=== PATIENT | female | born 1960 | race Caucasian/White ===

== ENCOUNTER 2020-03-18 13:38 | Outpatient (REF) | payer SELFPAY | END 2020-03-18 13:39 | disposition home or self-care (01) | LOC: HO.HAP 13:38 | PROVIDERS: Visit Provider Nurse Practitioner Family | DX: Z46.1 Encounter for fitting and adjustment of hearing aid (principal) | CPT/HCPCS: 92700 ==

== ENCOUNTER 2020-04-01 07:56 | Outpatient (REF) | payer SELFPAY | END 2020-04-01 07:57 | disposition home or self-care (01) | LOC: HO.HAP 07:56 | PROVIDERS: Visit Provider Internal Medicine | DX: Z13.89 Encounter for screening for other disorder (principal) | CPT/HCPCS: 92700 ==

== ENCOUNTER 2020-10-14 09:25 | Outpatient (REF) | payer OTHER, SELFPAY ==
--- NOTE | 2020-10-14 18:20 | MHC.AU.AHA ---
Adult Audiological Evaluation Date of Visit: 10/14/20 Reason for Appointment: Audiological evaluation to monitor the status of Ms. Gregory's hearing loss. She has a longstanding history of bilateral hearing loss and hearing aid use. She denies any significant changes to her hearing or medical history. [place] [facility] [place] Mild sloping to moderately severe/severe sensorineural hearing loss bilaterally. Medical History: Medical History: Unremarkable Medical History Hearing Instrument History- Right Ear: Spiral Tube Winder: Oticon Model: OPN 1 miniRITE-T Serial Number: [id number] Battery Size: 312 Repair Warranty: 08/03/20 Loss and Damage Warranty: 08/03/19 Dispensed By: [facility] Date of Fittin07/04/2017 Hearing Instrument History- Left Ear: Spiral Tube Winder: Oticon Model: OPN 1 miniRITE-T Serial Number: [id number] Battery Size: 312 Warranty: 08/03/20 Loss and Damage Warranty: 08/03/19 Dispensed By: [facility] Date of Fittin07/04/2017 Otoscopy: Right Ear: Unremarkable Left Ear: Unremarkable Tympanometry: Tympanometry performed due to: To assess integrity of the middle ear system Right Ear: Normal Middle Ear System (Type A) Left Ear: Normal Middle Ear System (Type A) Hearing Evaluation: Transducer(s) Used: Insert Earphones, Bone Conduction Method: Conventional Audiometry Stimuli Used: Pure Tones Right Ear: Description of Hearing: Mild sloping to severe sensorineural hearing loss from 250-8000 Hz. Left Ear: Description of Hearing: Mild sloping to severe sensorineural hearing loss from 250-8000 Hz. Speech Recognition Threshold (SRT): Method Used: Monitored Live Voice Stimuli Used: Spondee Words Right Ear: 25 dBHL Left Ear: 30 dBHL Word Discrimination: Method: Recorded Lists Word Lists Used: NU-6 Right Ear: 88% at 75 dBHL Left Ear: 88% at 75 dBHL Comparison: Compared to the most recent evaluation: Hearing is stable. Recommendations: Audiological re-evaluation in one year. Hearing aid maintenance performed today. Hearing aid(s) reprogrammed with updated test results. Diagnosis: Primary Diagnosis: H90.3 Bilateral Sensorineural Hearing Loss Services Performed: Comprehensive Audiological Evaluation (CPT 08235) Tympanometry (CPT 03068) Signature: Provider: Car Corea [facility]
== END 2020-10-14 09:26 | disposition home or self-care (01) ==
LOC: HO.SH 09:25
PROVIDERS: Visit Provider Nurse Practitioner Family
DX: H90.3 Sensorineural hearing loss, bilateral (principal)
CPT/HCPCS: 92557; 92567

== ENCOUNTER 2022-03-23 10:30 | Outpatient (REF) | payer OTHER, SELFPAY | END 2022-03-23 10:31 | disposition home or self-care (01) | LOC: HO.SH 10:30 | PROVIDERS: Visit Provider Nurse Practitioner Family | DX: Z01.118 Encounter for examination of ears and hearing with other abnormal findings (principal); H90.3 Sensorineural hearing loss, bilateral | CPT/HCPCS: 92557; 92567 ==

== ENCOUNTER 2022-03-23 11:07 | Outpatient (REF) | payer SELFPAY | END 2022-03-23 11:08 | disposition home or self-care (01) | LOC: HO.HAP 11:07 | PROVIDERS: Visit Provider Internal Medicine | DX: Z46.1 Encounter for fitting and adjustment of hearing aid (principal); H90.3 Sensorineural hearing loss, bilateral | CPT/HCPCS: V5267 ==

== ENCOUNTER 2023-10-31 08:59 | Outpatient (REF) | payer OTHER, SELFPAY | END 2023-10-31 09:00 | disposition home or self-care (01) | LOC: HO.SH 08:59 | PROVIDERS: PCP Nurse Practitioner Family; Visit Provider Nurse Practitioner Family | DX: H91.90 Unspecified hearing loss, unspecified ear (principal) | CPT/HCPCS: 92552; 92556 ==

== ENCOUNTER 2023-10-31 09:41 | Outpatient (REF) | payer SELFPAY ==
--- NOTE | 2023-10-31 09:58 | MHC.AU.HA3 ---
Hearing Instrument Follow-Up- Binaural Date of Visit: 10/31/23 Right Ear: Rell, Model, Color, Serial Number: [id number] Boiling Off Winder Repair Warranty: 08/03/20 Boiling Off Winder Loss and Damage Warranty: 08/03/19 [facility] Service Plan: n/a Battery Size: 312 Lockstitch Binder/Slim Tube: #1-85 GAIN Earmold/Dome/CShell/SlimTip:SLIM TIP Type of Wax Guard: PRO-WAX Dispensed By: [facility] Date of Fittin07/04/2017 Left Ear: Rell, Model, Color, Serial Number: [id number] Boiling Off Winder Repair Warranty: 08/03/20 Boiling Off Winder Loss and Damage Warranty: 08/03/19 [facility] Service Plan: n/a Battery Size: 312 Lockstitch Binder/Slim Tube: #1-85 GAIN Earmold/Dome/CShell/SlimTip: SLIM TIP Type of Wax Guard: PRO-WAX Dispensed By: [facility] Date of Fittin07/04/2017 Follow-Up Summary: Seen for evaluation. Cleaned and checked aids, cleaned earmolds, ran through dehumidifier, vacuumed microphone ports, changed wax guards. Listening check positive. Stable hearing, no programming changes made today. Recommendations: Recommendations: Hearing instrument follow-up or maintenance as needed. Diagnosis Code(s): Primary Diagnosis: H90.3 Bilateral Sensorineural Hearing Loss Signature: Provider: Danilo Muñoz, CCC-A
== END 2023-10-31 09:42 | disposition home or self-care (01) ==
LOC: HO.HAP 09:41
PROVIDERS: Visit Provider Nurse Practitioner Family
DX: Z46.1 Encounter for fitting and adjustment of hearing aid (principal); H90.3 Sensorineural hearing loss, bilateral
CPT/HCPCS: 92593; V5267

== ENCOUNTER 2025-01-28 13:46 | Outpatient (AMB) | payer OTHER, SELFPAY ==
--- OUTSIDE RECORDS SUMMARY | 2025-01-26 23:59 | XMS_ITS | Continuity of Care Document ---
Author Organization [facility] Address [address] [place] [id number]- Care Team Providers Care Retail Loss Prevention Officer Name Role Phone Pablito ARCINIEGA, Rocio Yadav Primary Care Physician [phone] Encounter [facility] Date(s): 10/21/24 - 01/26/25 [facility] [address] [place] [id number] Attending Physician: Jayde Chowdary MD Encounter Type: Pre Office Visit Allergies, Adverse Reactions, Alerts Substance Criticality Severity Reaction Reaction Severity Status Other Environmental Allergy 1 Active Azithromycin 5 Day Dose Pack Active 1getting immunotherapy injections in [place] Immunizations Given and Recorded Vaccine Date Status Refusal Reason zoster vaccine, inactivated 10/29/24 Recorded SARS-CoV-2(COVID-19)mRNA-LNP vac([id number]) 04/07/24 Recorded SARS-CoV-2(COVID-19)mRNA-LNP vac([id number]) 04/07/23 Recorded influenza virus vaccine, inactivated 03/30/24 Pepito rded influenza virus vaccine, inactivated 03/30/23 Pepito rded influenza virus vaccine, inactivated 03/02/22 Pepito rded influenza virus vaccine, inactivated 03/23/21 Pepito rded influenza virus vaccine, inactivated 02/25/20 Pepito rded influenza virus vaccine, inactivated 03/14/19 Pepito rded [id number] bivalent booster vax 05/29/22 Recorded SARS-CoV-2 (COVID-19) mRNA-1273 vaccine 05/17/21 R ecorded SARS-CoV-2 (COVID-19) mRNA-1273 vaccine 08/14/20 R ecorded SARS-CoV-2 (COVID-19) mRNA-1273 vaccine 07/17/20 R ecorded SARS-CoV-2 (COVID-19) mRNA-1273 vaccine 07/16/20 R ecorded SARS-CoV-2 (COVID-19) mRNA-1273 vaccine 06/15/20 R ecorded tetanus/diphtheria/pertussis, acel(Tdap) 12/03/18 Given diphtheria/tetanus/pertussis, acel(DTaP) 07/05/13 Recorded Medications acetaminophen 325 mg oral tablet 650 mg, By Mouth, Every 6 hours, May take OTC not to exceed 3000 mg/day, Refills 0, Maintenance, 09/07/21 8:44:00 AM EDT, Partial fill upon patient request if the prescription is for a schedule II opioid drug. Start Date: 09/07/21 Status: Ordered Repeat number: 1 Albuterol (Eqv-ProAir HFA) 90 mcg/inh inhalation aerosol 2 puffs, Inhalation, Every 6 hours, PRN shortness of breath/wheezing, # 8.5 Gm, 0 Refills, Maintenance, 11/15/24 9:47:00 AM EDT, [facility]/pharmacy #[id number], Partial fill upon patient request if the prescription is for a schedule II opioid drug., 2 puffs Inhalation Every 6 hours,x30 days,PRN:shortness of breath/wheezing, 163, cm, 11/15/24 7:25:00 EDT, Height, 99.5, kg, 11/11/24 12:37:00 EDT, Dry Weight Start Date: 11/15/24 Stop Date: 12/15/24 Status: Ordered Quantity: 8.5 Unit: g Repeat number: 1 atorvastatin 40 mg oral tablet 1 tablet, By Mouth, Daily, # 90 tablet, 1 Refills, Maintenance, 01/02/25 10:08:00 AM EDT, [id number], 163, cm, 12/24/24 8:43:00 EDT, Height, 99.5, kg, 11/11/24 12:37:00 EDT, Dry Weight Start Date: 01/02/25 Status: Ordered Quantity: 90.0 Unit: tablet Repeat number: 1 hydrochlorothiazide 25 mg oral tablet 1, tablet, By Mouth, Daily, # 90 tablet, Refills 1, Maintenance, 10/02/24 3:21:00 PM EDT, Route to Pharmacy Electronically, [id number], 163, cm, 09/24/24 7:57:00 EDT, Height Start Date: 10/02/24 Status: Ordered Quantity: 90.0 Unit: tablet Repeat number: 1 latanoprost 0.005% ophthalmic solution 1 drops, Eyes, Both, Daily in PM, # 2.5 mL, 0 Refills, Maintenance, 09/21/18 8:42:47 AM EDT, Solution Start Date: 09/21/18 Status: Ordered Quantity: 2.5 Unit: mL Repeat number: 1 lisinopril 5 mg oral tablet 1, tablet, By Mouth, Daily, # 90 tablet, Refills 1, Maintenance, 08/29/24 12:23:00 PM EDT, Route to Pharmacy Electronically, [id number], 163, cm, 03/05/24 11:15:00 EDT, Height Start Date: 08/29/24 Status: Ordered Quantity: 90.0 Unit: tablet Repeat number: 1 omeprazole 20 mg oral enteric coated capsule 1 capsule, By Mouth, Daily, # 90 capsule, 1 Refills, Maintenance, 11/07/24 12:07:00 PM EDT, [facility]/pharmacy #[id number], 163, cm, 10/08/24 11:20:00 EDT, Height Start Date: 11/07/24 Status: Ordered Quantity: 90.0 Unit: capsule Repeat number: 2 valACYclovir 500 mg oral tablet See Instructions, TAKE 1 TABLET BY MOUTH TWICE A DAY FOR 3 DAYS NEEDED FOR OUTBREAKS, # 24 tablet, Refills 1, Tot. Refills 1, Maintenance, 11/25/24 12:58:00 PM EDT, Instructions Replace Required Details, Route to Pharmacy Electronically, [facility]/pharmacy #[id number], Partial fill upon patient request if the prescription is for a schedule II opioid drug., 163, cm, 11/15/24 11:47:00 EDT, Height, 99.5, kg, 0 11/11/24 12:37:00 EDT, Dry Weight Start Date: 11/25/24 Status: Ordered Quantity: 24.0 Unit: tablet Repeat number: 2 Problem List Condition Confirmation Course Effective Dates Status H ealth Status Informant Acute hypoxic respiratory failure Confirmed Active Allergic rhinitis due to pollen Confirmed Active Borderline glaucoma Confirmed Active 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 GERD with esophagitis Confirmed Active Genital herpes simplex Confirmed Active Large hiatal hernia Confirmed Active Hyperlipidemia Confirmed Active Hypertension Confirmed Active Migraine with aura Confirmed Active Parainfluenza infection Confirmed Active Severe obesity (BMI 35.0-39.9) with comorbidity Confirmed Active Uterine fibroid Confirmed Active Vitamin D deficiency Confirmed Active Social History Social History Type Response Smoking Status Never (less than 100 in lifetime) entered on: 09/21/18 Sex Sex Representation Female (finding) Patient Care team information Care Team Personnel Name: Jackeline Rdz RN Position: [facility] RN Member Role: Primary Care Nurse Name: Yarelis Oglesby RN Position: [facility] SN RN Member Role: Primary Care Nurse Name: Sraah García RN Position: [facility] ED RN W/OE and Tasks Member Role: Primary Care Nurse Name: Kalpana Arreola RN Position: [facility] RN Member Role: Primary Care Nurse Name: Rocio Kenney NP Position: [facility] PCO Associate Professional Member Role: PCP Address: [address] [place] [address] [place], [place] [address] Telecom: Name: Saida Pearce Position: [facility] Member Role: Primary Care Nurse Care Team Related Persons Name: SHAQUILLE IBRAHIM Name: PRABHJOT BOTELLO Name: MARY ROD Insurance Providers Guarantor name: [facility] Information #: 1 Payer: [facility] Payer Identifier: [id number] Member Number: [id number] Group Number: [id number] Subscriber Identifier: [id number] Relationship to Subscriber: self Coverage Type: Commercial Managed Care - HMO Coverage Verification Date: Telecom: NA Address:
== END 2025-01-28 14:02 | disposition home or self-care (01) ==
LOC: HO.HMGAL 13:46
PROVIDERS: PCP Nurse Practitioner Family; Visit Provider Registered Nurse Emergency
DX: J30.89 Other allergic rhinitis (principal)
CPT/HCPCS: 95117; 95165

== ENCOUNTER 2025-02-12 13:35 | Outpatient (AMB) | payer OTHER, SELFPAY | END 2025-02-12 13:55 | disposition home or self-care (01) | LOC: HO.HMGAL 13:35 | PROVIDERS: PCP Nurse Practitioner Family; Visit Provider Registered Nurse Emergency | DX: J30.89 Other allergic rhinitis (principal) | CPT/HCPCS: 95117; 95165 ==

== ENCOUNTER 2025-03-05 14:41 | Outpatient (AMB) | payer OTHER, SELFPAY | END 2025-03-05 14:42 | disposition home or self-care (01) | LOC: HO.HMGAL 14:41 | PROVIDERS: PCP Nurse Practitioner Family; Visit Provider Registered Nurse Emergency | DX: J30.89 Other allergic rhinitis (principal) | CPT/HCPCS: 95117; 95165 ==

== ENCOUNTER 2025-03-19 13:31 | Outpatient (AMB) | payer OTHER, SELFPAY | END 2025-03-19 13:35 | disposition home or self-care (01) | LOC: HO.HMGAL 13:31 | PROVIDERS: PCP Nurse Practitioner Family; Visit Provider Registered Nurse Emergency | DX: J30.89 Other allergic rhinitis (principal) | CPT/HCPCS: 95117; 95165 ==

== ENCOUNTER 2025-04-02 09:50 | Outpatient (AMB) | payer OTHER, SELFPAY | END 2025-04-02 09:51 | disposition home or self-care (01) | LOC: HO.HMGAL 09:50 | PROVIDERS: PCP Nurse Practitioner Family; Visit Provider Registered Nurse Emergency | DX: J30.89 Other allergic rhinitis (principal) | CPT/HCPCS: 95117; 95165 ==

== ENCOUNTER 2025-04-21 13:02 | Outpatient (AMB) | payer OTHER, SELFPAY | END 2025-04-21 13:05 | disposition home or self-care (01) | LOC: HO.HMGAL 13:02 | PROVIDERS: PCP Nurse Practitioner Family; Visit Provider Registered Nurse Emergency | DX: J30.89 Other allergic rhinitis (principal) | CPT/HCPCS: 95117; 95165 ==

== ENCOUNTER 2025-05-07 10:32 | Outpatient (AMB) | payer OTHER, SELFPAY | END 2025-05-07 10:32 | disposition home or self-care (01) | LOC: HO.HMGAL 10:32 | PROVIDERS: PCP Nurse Practitioner Family; Visit Provider Registered Nurse Emergency | DX: J30.89 Other allergic rhinitis (principal) | CPT/HCPCS: 95117; 95165 ==

== ENCOUNTER 2025-05-21 11:30 | Outpatient (AMB) | payer OTHER, SELFPAY | END 2025-05-21 11:31 | disposition home or self-care (01) | LOC: HO.HMGAL 11:30 | PROVIDERS: PCP Nurse Practitioner Family; Visit Provider Registered Nurse Emergency | DX: J30.89 Other allergic rhinitis (principal) | CPT/HCPCS: 95117; 95165 ==